=== PATIENT | male | born 1995 | race Caucasian/White ===

== ENCOUNTER 2021-11-18 13:57 | Emergency (ER) | payer SELFPAY ==
[~2021-11-18] VITALS: Ht 162.6 cm; Wt 63.6 kg
[2021-11-18 14:33] VITALS: BP 136/70
[2021-11-18] MEDS ORDERED: [UNRECOGNIZED DRUG - CODE] TP (14:41)
[2021-11-18] MEDS ORDERED: [UNRECOGNIZED DRUG - CODE] TP (14:50)
== END 2021-11-18 15:05 | disposition home or self-care (01) ==
LOC: ER 13:57
DX: K94.09 Other complications of colostomy (principal)
CPT/HCPCS: 99283